=== PATIENT | male | born 2000 | race Caucasian/White ===

== ENCOUNTER 2023-11-07 15:43 | Emergency (ER) | payer OTHER ==
[2023-11-07 17:20] LABS: Bilirubin Neg (Negative); Blood, Urine Negative (Negative); Clarity Slightly Cloudy (Clear); Glucose, Urine (Dipstick) Normal (Negative); Ketone, Urine Negative (Negative); Leukocyte Negative (Negative); Nitrite Negative (Negative); Protein, Urine (Dipstick) Negative (Neg-Trace); Specific Gravity, Urine 1.015 (1.005-1.030); Urobilinogen Normal mg/dL (Less than 2)
[2023-11-07 18:02] LABS: Bacteria/HPF 2+ HPF (None Seen); CAUTI Indications for Culture Pelvic or flank pain; RBC/HPF 0-3 HPF (0-3); Squamous Epithelial 0-3 HPF (0-3); WBC/HPF 0-3 HPF (0-3)
[2023-11-07 18:09] LABS: Urine Culture Reflex No No
== END 2023-11-07 17:08 | disposition home or self-care (01) ==
LOC: CSHERS 15:43
DX: N50.812 Left testicular pain (principal)
CPT/HCPCS: 76870; 81001; 93976